=== PATIENT | female | born 1935 | race Caucasian/White ===

== ENCOUNTER 2019-01-06 08:00 | Inpatient (IN) | payer OTHER ==
[~2019-01-06] VITALS: Ht 152.4 cm; Wt 47.2 kg
[2019-01-06] MEDS ORDERED: COZAAR25 MG PO (12:02)
[2019-01-06] MEDS ORDERED: SYNTHROID88 MCG PO (12:03)
[2019-01-06] MEDS ORDERED: LANTUS (12:03)
[2019-01-06] MEDS ORDERED: JANUMET (12:04)
[2019-01-06] MEDS ORDERED: ARICEPT5 MG PO (12:04)
[2019-01-06] MEDS ORDERED: GABAPENTIN300 MG PO (12:04)
[2019-01-06] MEDS ORDERED: ZOCOR20 MG PO (12:05)
[2019-01-13] MEDS ORDERED: PERCOCET 5-3251 EACH PO (14:45)
[2019-01-13] MEDS ORDERED: CIPRO500 MG PO (14:45)
[2019-01-13] MEDS ORDERED: ELIQUIS2.5 MG PO (14:45)
== END 2019-01-13 18:44 | DRG 470 ==
LOC: SURH 01-11 06:19 → O/R 01-11 06:19 → SURH 01-11 08:00
PROVIDERS: ADMIT Orthopaedic Surgery
PROC: 0MTL0ZZ Resection of Right Hip Bursa and Ligament, Open Approach (ICD-10-PCS; 2019-01-11)
PROC: 0SR90JZ Replacement of Right Hip Joint with Synthetic Substitute, Open Approach (ICD-10-PCS; principal; 2019-01-11 12:30)
DX: M16.11 Unilateral primary osteoarthritis, right hip (principal); D62 Acute posthemorrhagic anemia; M81.0 Age-related osteoporosis without current pathological fracture; E03.8 Other specified hypothyroidism; E11.9 Type 2 diabetes mellitus without complications; I10 Essential (primary) hypertension; F03.90 Unspecified dementia, unspecified severity, without behavioral disturbance, psychotic disturbance, mood disturbance, and anxiety; Z90.49 Acquired absence of other specified parts of digestive tract